=== PATIENT | male | born 1985 | race Caucasian/White ===

== ENCOUNTER 2017-12-16 18:41 | Emergency (ER) | payer MEDICAID ==
[~2017-12-16] VITALS: Ht 180.3 cm; Wt 104.3 kg
[2017-12-16 18:57] VITALS: BP 166/121
--- NOTE | 2017-12-16 19:00 | NUR ---
PT SENT TO ED LOBBY AFTER TRIAGE. EDMD AWARE OF PT STATUS.
--- NOTE | 2017-12-16 21:05 | NUR ---
AMBULATED TO ER BED 2
--- NOTE | 2017-12-16 21:06 | NUR ---
PT PRESENTED ER WITH C/O HIGH BLOOD PRESSURE. TODAY PT WENT IN FOR AN EMPLOYMENT PHYSICAL CHECK AND THE MD NOTIFIED HIM TO COME TO ER DUE TO HIS HIGH BLOOD PRESSURE. CURRENTLY UPON ASSESSMENT BP IS 161/100. KNA PREVIOUS MEDICAL HX IS HIGH BP. SKIN IS PINK/WARM/DRY; AAOX4 WITH EVEN AND STEADY GAIT; LUNGS CLEAR BL; HR EVEN AND REGULAR; PT DENIES ANY FEVER, CP, SOB, OR COUGH AT THIS TIME; PATIENT STATES PAIN OF 0/10 AT THIS TIME; VSS; PATIENT POSITIONED FOR COMFORT; HOB ELEVATED; BEDRAILS UP X2; BED DOWN. ER MD MADE AWARE OF PT STATUS.
[2017-12-16] MEDS ORDERED: cloNIDine 0.1 MG TAB PO ONE (21:40)
[2017-12-16 22:00] LABS: ANION GAP 8.9 (8-16); CARBON DIOXIDE 30.8 mmol/L (21-32); CREATININE 0.9 mg/dL (0.7-1.3); POTASSIUM 3.7 mmol/L (3.5-5.1)
--- NOTE | 2017-12-16 22:42 | NUR ---
Patient discharged with v/s stable. Written and verbal after care instructions given and explained. Patient alert, oriented and verbalized understanding of instructions. Ambulatory with steady gait. All questions addressed prior to discharge. ID band removed. Patient advised to follow up with PMD. Rx of HYDROCHLOROTHIAZIDE WAS given. Patient educated on indication of medication including possible reaction and side effects. Opportunity to ask questions provided and answered.
--- NOTE | 2017-12-16 22:42 | NUR ---
REASSESSMENT FOR BP IS 146/113 UPON DC. NO DIZZINESS, VALLADARES. VITALS STABLE
[2017-12-16 22:43] VITALS: BP 146/113
== END 2017-12-16 22:38 | disposition home or self-care (01) ==
LOC: MED 18:41
DX: I10 Essential (primary) hypertension (principal); F17.210 Nicotine dependence, cigarettes, uncomplicated; F12.10 Cannabis abuse, uncomplicated
CPT/HCPCS: 36415; 80048; 93005; 99285